=== PATIENT | male | born 1975 | race African-American/Black ===

== ENCOUNTER 2021-05-12 08:07 | Inpatient (IN) | payer MEDICAID, SELFPAY ==
[2021-05-12] VITALS (14 sets, daily range): BP systolic 111–170; BP diastolic 59–100; PULSE 82–140; RESP 16–22; TEMP 36.4; O2SAT 92–100; BMI 30.8
--- NOTE | ~2021-05-12 | CT_ITS ---
EXAMINATION: CT HEAD WITHOUT CONTRAST CLINICAL INFORMATION: Altered mental status. COMPARISON: None. TECHNIQUE: Contiguous axial imaging was performed from the skull base to vertex without intravenous administration of contrast. This CT examination was performed using dose optimization techniques as appropriate, variously including the following: *Automated exposure control *Adjustment of mA and/or kV according to patient size (this includes techniques or standardized protocols for targeted exams where dose is matched to indication/reason for exam; i.e. extremities or head) *Use of iterative reconstruction technique DLP: 899 mGy-cm. FINDINGS: There is no evidence of acute intracranial hemorrhage or territorial infarction. No abnormal mass effect or midline shift is seen. [place] to white matter differentiation is well preserved. No extra-axial fluid collections are identified. The ventricles are normal in size. There is no abnormal attenuation within the brain parenchyma. The osseous structures and soft tissues are normal. The mastoid air cells and visualized portions of the paranasal sinuses are well aerated. CT/CT head/brain wo con IMPRESSION: No acute intracranial hemorrhage or mass effect.
--- NOTE | 2021-05-12 08:16 | ED_ITS ---
HPI - Altered Mental Status General Chief Complaint: Altered Mental Status Stated Complaint: od/etoh/pd custody Time Seen by Provider: 05/12/21 08:16 Source: EMS Mode of arrival: EMS Limitations: no limitations History of Present Illness HPI narrative: patient found agitated on a hotel roof. He was agitated with po lice and ems. complaint: altered mental status Onset (ago): minute(s) Severity: severe Related Data Home Medications Medication Instructions Recorded Confirmed buspirone 15 mg tablet 1 tab PO BID PRN 05/12/21 05/12/21 fluoxetine 20 mg capsule 1 cap PO QAM 05/12/21 05/12/21 folic acid 1 mg tablet 1 tab PO DAILY 05/12/21 05/12/21 multivitamin 1 tab PO DAILY 05/12/21 05/12/21 omega-3 acid ethyl esters 1 gram 1 cap PO BID 05/12/21 05/12/21 capsule thiamine HCl (vitamin B1) 100 mg 1 tab PO DAILY 05/12/21 05/12/21 tablet Allergies Allergy/AdvReac Type Severity Reaction Status Date / Time No Known Allergies Allergy Unverified 04/23/20 17:05 [No Known Allergies*] Review of Systems Review of Systems: Yes Unobtainable due to mental status Neurologic: Denies Sensory deficit (Neuro) [facility] Social History Social History Patient Tobacco Use Status: Current everyday Tobacco user Smoked in Last 30 Days: Yes Substance Use Type: Hallucinogens Advance Directives: No Physical Exam Vital Signs: Vital Signs: Last Vital Signs Pulse 86 05/12/21 13:04 Resp 16 05/12/21 13:04 BP 113/59 L 05/12/21 13:04 Pulse Ox 96 05/12/21 13:04 Body Mass Index 30.8 Const: Other: Agitated diaphoretic, not answering questions Nutritional Appearance: average body habitus HENMT: Head: Yes normal to inspection Ears: external ears normal General nose exam: Normal external nose present Mouth: Normal oral and palatal mucosa present and oropharynx normal Throat: Yes posterior oropharynx normal Eyes: General: appearance normal, both eyes and all related structures Neck: Other: supple Neck: Yes normal visual inspection Chest: Chest palpation & inspection: normal inspection of the chest Resp: Auscultation: clear to auscultation bilaterally Cardio: Other: very tachycardic Jugular venous distension: no JVD Rhythm: regular rhythm Heart sounds: S1 normal heart sound present and S2 normal heart sound present GI: Inspection: Yes normal to inspection Palpation (GI): Soft to palpation, nontender and No hepatosplenomegaly present Auscultation: normal bowel sounds : General: Yes no CVA tenderness Back/Spine/Pelvis: Back: no CVA tenderness Skin: General skin exam: no rashes or lesions noted Neuro: Cranial nerves: Yes CN's II-XII intact bilaterally Motor exam ( neuro): 5/5 motor strength present throughout Sensory Exam: No Sensory deficit (Neuro) Extrem: General: Yes normal to inspection Psych: Other: mumbling not answering appropriately, restless Course Reevaluation(s) Reevaluation #1: patient with likely use of PCP and now with rhabdomyolisis will admit Time: 10:03 [facility] - Altered Mental Status Lab Data Result diagrams: 05/12/21 08:52 05/12/21 08:52 Labs: Lab Results 05/12/21 05/12/21 05/12/21 Range/Units 08:24 08:52 08:52 WBC 7.7 (4.8-10.8) X10*3/uL RBC 5.25 (4.60-5.80) X10*6/uL Hgb 14.5 (14.0-18.0) g/dl Hct 41.6 L (42-52) % MCV 79.2 L (80-98) fL MCH 27.6 (27.0-33.0) pg MCHC 34.9 (31.0-36.0) g/dl RDW 13.4 (11.0-16.0) % Plt Count 197 (160-400) X10*3/uL MPV 9.6 (9.4-12.4) fL Immature Gran % (Auto) 0.3 (0.0-0.4) % Neut % (Auto) 73.3 H (45-73) % Lymph % (Auto) 15.7 L (20-40) % [place] % (Auto) 10.1 (2-11) % Eos % (Auto) 0.3 (0-4) % Baso % (Auto) 0.3 (0-2) % Lymph # (Auto) 1.2 (1.2-4.9) X10*3/uL [place] # (Auto) 0.8 (0.1-1.2) X10*3/uL Eos # (Auto) 0.0 (0.0-0.4) X10*3/uL Baso # (Auto) 0.0 (0.0-0.2) X10*3/uL Abs Immat Gran (auto) 0.02 (0.00-0.03) X10*3/uL Absolute Neuts (auto) 5.6 (2.0-8.3) X10*3/uL Absolute Nucleated RBC 0.000 (0.0-0.012) X10*3/uL Nucleated RBC % (auto) 0.0 (0.0-0.2) /100WBC Sodium 143 (135-145) mmol/L Potassium 3.3 (3.3-5.1) mmol/L Chloride 108 (96-108) mmol/L Carbon Dioxide 22 (22-29) mmol/L Anion Gap 16 (12-20) BUN 22 H (9-16) mg/dL Creatinine 1.54 H (0.5-1.4) mg/dL Estim Creat Clear Calc 76.7 Estimated GFR 50 POC Glucose 140 H (60-115) mg/dL Random Glucose 127 H (60-115) mg/dL Estimat Average Glucose mg/dL Hemoglobin A1c % % Calcium 9.6 (8.4-10.2) mg/dL Magnesium 2.2 (1.6-2.6) mg/dL Total Bilirubin 0.9 (0.0-1.0) mg/dL Direct Bilirubin 0.4 (0.0-0.5) mg/dL AST 105 H (5-37) U/L ALT 58 H (0-40) U/L Alkaline Phosphatase 72 (39-117) U/L Total Creatine Kinase 3545 H (38-174) U/L Troponin I High Sens (<3.5-35.0) ng/L Total Protein 7.3 (6.5-8.0) g/dL Albumin 4.5 (3.5-5.0) g/dL Urine Color Urine Appearance Urine pH (5.0-8.0) Ur Specific [place] (1.005-1.025) Urine Protein (NEG-TRACE) MG/DL Urine Glucose (UA) (NEG) MG/DL Urine Ketones (NEG) MG/DL Urine Blood (NEG) Urine Nitrite (NEG) Ur Leukocyte Esterase (NEG) Urine RBC (0) /HPF Urine WBC (0-4) /HPF Ur Squamous Epith Cells /LPF Urine Bacteria /LPF Urine Mucus /LPF Urine Sperm Urine Opiates Screen (Not Detect) Urine Fentanyl Screen (Not Detect) Ur Barbiturates Screen (Not Detect) Ur Phencyclidine Scrn (Not Detect) Ur Amphetamines Screen (Not Detect) U Benzodiazepines Scrn (Not Detect) Urine Cocaine Screen (Not Detect) U Marijuana (THC) Screen (Not Detect) Ethyl Alcohol mg/dL COVID-19 (SHANTHI) (Negative) COVID-19 Clin Com 05/12/21 05/12/21 05/12/21 Range/Units 08:52 08:52 08:52 WBC (4.8-10.8) X10*3/uL RBC (4.60-5.80) X10*6/uL Hgb (14.0-18.0) g/dl Hct (42-52) % MCV (80-98) fL MCH (27.0-33.0) pg MCHC (31.0-36.0) g/dl RDW (11.0-16.0) % Plt Count (160-400) X10*3/uL MPV (9.4-12.4) fL Immature Gran % (Auto) (0.0-0.4) % Neut % (Auto) (45-73) % Lymph % (Auto) (20-40) % [place] % (Auto) (2-11) % Eos % (Auto) (0-4) % Baso % (Auto) (0-2) % Lymph # (Auto) (1.2-4.9) X10*3/uL [place] # (Auto) (0.1-1.2) X10*3/uL Eos # (Auto) (0.0-0.4) X10*3/uL Baso # (Auto) (0.0-0.2) X10*3/uL Abs Immat Gran (auto) (0.00-0.03) X10*3/uL Absolute Neuts (auto) (2.0-8.3) X10*3/uL Absolute Nucleated RBC (0.0-0.012) X10*3/uL Nucleated RBC % (auto) (0.0-0.2) /100WBC Sodium (135-145) mmol/L Potassium (3.3-5.1) mmol/L Chloride (96-108) mmol/L Carbon Dioxide (22-29) mmol/L Anion Gap (12-20) BUN (9-16) mg/dL Creatinine (0.5-1.4) mg/dL Estim Creat Clear Calc Estimated GFR POC Glucose (60-115) mg/dL Random Glucose (60-115) mg/dL Estimat Average Glucose 97 mg/dL Hemoglobin A1c % 5.0 % Calcium (8.4-10.2) mg/dL Magnesium (1.6-2.6) mg/dL Total Bilirubin (0.0-1.0) mg/dL Direct Bilirubin (0.0-0.5) mg/dL AST (5-37) U/L ALT (0-40) U/L Alkaline Phosphatase (39-117) U/L Total Creatine Kinase (38-174) U/L Troponin I High Sens 6.3 (<3.5-35.0) ng/L Total Protein (6.5-8.0) g/dL Albumin (3.5-5.0) g/dL Urine Color Urine Appearance Urine pH (5.0-8.0) Ur Specific [place] (1.005-1.025) Urine Protein (NEG-TRACE) MG/DL Urine Glucose (UA) (NEG) MG/DL Urine Ketones (NEG) MG/DL Urine Blood (NEG) Urine Nitrite (NEG) Ur Leukocyte Esterase (NEG) Urine RBC (0) /HPF Urine WBC (0-4) /HPF Ur Squamous Epith Cells /LPF Urine Bacteria /LPF Urine Mucus /LPF Urine Sperm Urine Opiates Screen (Not Detect) Urine Fentanyl Screen (Not Detect) Ur Barbiturates Screen (Not Detect) Ur Phencyclidine Scrn (Not Detect) Ur Amphetamines Screen (Not Detect) U Benzodiazepines Scrn (Not Detect) Urine Cocaine Screen (Not Detect) U Marijuana (THC) Screen (Not Detect) Ethyl Alcohol < 10 mg/dL COVID-19 (SHANTHI) (Negative) COVID-19 Clin Com 05/12/21 05/12/21 05/12/21 Range/Units 11:05 11:15 11:15 WBC (4.8-10.8) X10*3/uL RBC (4.60-5.80) X10*6/uL Hgb (14.0-18.0) g/dl Hct (42-52) % MCV (80-98) fL MCH (27.0-33.0) pg MCHC (31.0-36.0) g/dl RDW (11.0-16.0) % Plt Count (160-400) X10*3/uL MPV (9.4-12.4) fL Immature Gran % (Auto) (0.0-0.4) % Neut % (Auto) (45-73) % Lymph % (Auto) (20-40) % [place] % (Auto) (2-11) % Eos % (Auto) (0-4) % Baso % (Auto) (0-2) % Lymph # (Auto) (1.2-4.9) X10*3/uL [place] # (Auto) (0.1-1.2) X10*3/uL Eos # (Auto) (0.0-0.4) X10*3/uL Baso # (Auto) (0.0-0.2) X10*3/uL Abs Immat Gran (auto) (0.00-0.03) X10*3/uL Absolute Neuts (auto) (2.0-8.3) X10*3/uL Absolute Nucleated RBC (0.0-0.012) X10*3/uL Nucleated RBC % (auto) (0.0-0.2) /100WBC Sodium (135-145) mmol/L Potassium (3.3-5.1) mmol/L Chloride (96-108) mmol/L Carbon Dioxide (22-29) mmol/L Anion Gap (12-20) BUN (9-16) mg/dL Creatinine (0.5-1.4) mg/dL Estim Creat Clear Calc Estimated GFR POC Glucose (60-115) mg/dL Random Glucose (60-115) mg/dL Estimat Average Glucose mg/dL Hemoglobin A1c % % Calcium (8.4-10.2) mg/dL Magnesium (1.6-2.6) mg/dL Total Bilirubin (0.0-1.0) mg/dL Direct Bilirubin (0.0-0.5) mg/dL AST (5-37) U/L ALT (0-40) U/L Alkaline Phosphatase (39-117) U/L Total Creatine Kinase (38-174) U/L Troponin I High Sens (<3.5-35.0) ng/L Total Protein (6.5-8.0) g/dL Albumin (3.5-5.0) g/dL Urine Color YELLOW Urine Appearance CLEAR Urine pH 6.0 (5.0-8.0) Ur Specific [place] >= 1.030 H (1.005-1.025) Urine Protein 2+ H (NEG-TRACE) MG/DL Urine Glucose (UA) 250 H (NEG) MG/DL Urine Ketones 15 (NEG) MG/DL Urine Blood TRACE (NEG) Urine Nitrite NEG (NEG) Ur Leukocyte Esterase NEG (NEG) Urine RBC 1-4 (0) /HPF Urine WBC 0 (0-4) /HPF Ur Squamous Epith Cells TRACE /LPF Urine Bacteria NONE /LPF Urine Mucus 1+ /LPF Urine Sperm NOTED Urine Opiates Screen Not Detected (Not Detect) Urine Fentanyl Screen POSITIVE H (Not Detect) Ur Barbiturates Screen Not Detected (Not Detect) Ur Phencyclidine Scrn Not Detected (Not Detect) Ur Amphetamines Screen Not Detected (Not Detect) U Benzodiazepines Scrn Not Detected (Not Detect) Urine Cocaine Screen POSITIVE H (Not Detect) U Marijuana (THC) Screen Not Detected (Not Detect) Ethyl Alcohol mg/dL COVID-19 (SHANTHI) Negative (Negative) COVID-19 Clin Com See Note ECG Data ECG #1: Attestation: I personally reviewed and interpreted this ECG as follows: Interpretation: sinus [address] or twave changes Discharge Plan Discharge Clinical Impression: Altered mental status Qualifiers: Altered mental status type: unspecified Qualified Code(s): R41.82 - Altered mental status, unspecified Rhabdomyolysis Qualifiers: Rhabdomyolysis type: non-traumatic Qualified Code(s): M62.82 - Rhabdomyolysis Patient Disposition: Admitted As Inpatient
--- NOTE | 2021-05-12 08:19 | ECG_ITS ---
Test Reason : AMS Blood Pressure : / mmHG Vent. Rate : 103 BPM Atrial Rate : 103 BPM P-R Int : 156 ms QRS Dur : 094 ms QT Int : 398 ms P-R-T Axes : 042 -08 037 degrees QTc Int : 521 ms Sinus tachycardia Prolonged QT Abnormal ECG No previous ECGs available Referred By: Rupert Naqvi Electronically Signed By:TRENT HERNANDEZ
[2021-05-12] MEDS: Haloperidol Lactate 5 MG/ML VIAL 10 MG IM ×2 (08:29→16:51)
[2021-05-12] MEDS: LORazepam 2 MG/ML VIAL 4 MG IM (08:29)
[2021-05-12] MEDS: 0.9 % Sodium Chloride 1,000 ML 999 ML IVCONT ×2 (08:46)
[2021-05-12 08:56] LABS: MANUAL DIFF FLAG NO
[2021-05-12 08:58] LABS: Basophils Percent Auto 0.3 % (0-2); Eosinophils Percent Auto 0.3 % (0-4); Hematocrit 41.6 % (42-52); Hemoglobin 14.5 g/dl (14.0-18.0); Imm Gran Abs Auto 0.02 X10*3/uL (0.00-0.03); Imm Gran Pct Auto 0.3 % (0.0-0.4); Lymphocytes Absolute Auto 1.2 X10*3/uL (1.2-4.9); Lymphocytes Percent Auto 15.7 % (20-40); Mean Corpuscular HGB Conc 34.9 g/dl (31.0-36.0); Mean Corpuscular Hemoglobin 27.6 pg (27.0-33.0); Mean Corpuscular Volume 79.2 fL (80-98); Mean Platelet Volume 9.6 fL (9.4-12.4); Monocytes Absolute Auto 0.8 X10*3/uL (0.1-1.2); Monocytes Percent Auto 10.1 % (2-11); Neutrophils Absolute Auto 5.6 X10*3/uL (2.0-8.3); Neutrophils Percent Auto 73.3 % (45-73); Platelet Count 197 X10*3/uL (160-400); Red Blood Count 5.25 X10*6/uL (4.60-5.80); Red Cell Distribution Width 13.4 % (11.0-16.0); White Blood Count 7.7 X10*3/uL (4.8-10.8)
[2021-05-12 09:02] LABS: Glucose, Whole Blood 140 mg/dL (60-115)
[2021-05-12 09:14] LABS: Ethanol < 10 mg/dL
[2021-05-12 09:22] LABS: Troponin-I High Sensitivity 6.3 ng/L (<3.5-35.0)
[2021-05-12 09:28] LABS: Alanine Aminotransferase 58 U/L (0-40); Albumin Level 4.5 g/dL (3.5-5.0); Alkaline Phosphatase 72 U/L (39-117); Anion Gap 16 (12-20); Aspartate Amino Transferase 105 U/L (5-37); Bilirubin Direct 0.4 mg/dL (0.0-0.5); Bilirubin Total 0.9 mg/dL (0.0-1.0); Blood Urea Nitrogen 22 mg/dL (9-16); Calcium 9.6 mg/dL (8.4-10.2); Carbon Dioxide 22 mmol/L (22-29); Chloride 108 mmol/L (96-108); Creatinine Clr Calc Pharmacy 76.7; Estimated Glomerular Filt Rate 50; Glucose Random 127 mg/dL (60-115); Potassium 3.3 mmol/L (3.3-5.1); Sodium 143 mmol/L (135-145); Total Protein 7.3 g/dL (6.5-8.0)
[2021-05-12 10:55] LABS: Magnesium 2.2 mg/dL (1.6-2.6)
--- NOTE | 2021-05-12 10:55 | PHA.MEDREC ---
Pharmacy Consult ? Medication Reconciliation Pharmacy has completed the medication reconciliation. There are no remarkable issues. Patient had AMS therefore I completed med list by claim history. All medications were recently filled. Kassandra Cartagena, PharmD
--- NOTE | 2021-05-12 11:10 | PM.IMHP ---
History of Present Illness Date of Service: 05/12/21 Chief Complaint: Altered mental status This is a 45 yo M who was a brought to [facility] by paramedics/police after he was found on a hotel roof with altereted mental status. The patient is currently s/p sedation due to agitation and is unable to provide any history. As such, history is obtained from the ED providers and ED documentation. Per ED triage note -- Pt does not answer all questions. Pt repeatedly asks why they're going to shoot him, pt profusely sweating and tachycardic. Pt states he was on the roof because people are going to shoot him. Per ED provider -- the patient came in combative and with altered mental status. He required haldol 10mg and ativan 2mg to sedation due to agitation. His biochemical work up revealed a elevated BUN and Cr with CPK of 3545. His symptoms were attributed to suspected PCP overdose. He was given IV fluid bolus and admission was requested. Patient was seen in the ED around 1045 AM. He is currently sedated and not responding to verbal stimuli. He does move all 4 extremities randomly. He does react to painful stimuli. Patient will need to be admitted for suspected PCP induced altered mental status + rhabdo. A CT brain and COVID swab + straight cath for UA + Urine tox screen have been requested and are pending as of this note. Past medical/surgical/family and social histories are unable to be completed due to patietns mental status Review of Systems Review of Systems: unable to complete due to mental status Yes Unobtainable due to mental condition PMFSH Cognitive capacity: unable to complete due to mental status Pertinent family history: unable to complete due to mental status Social History Patient Tobacco Use Status: Current everyday Tobacco user Smoked in Last 30 Days: Yes Substance Use Type: Hallucinogens Advance Directives: No Meds Allergies Allergy/AdvReac Type Severity Reaction Status Date / Time No Known Allergies Allergy Unverified 04/23/20 17:05 [No Known Allergies*] Active Medications: Current Medications Pharmacy Consult (Consult Rx Perform Med Rec) 1 each MISCELLANE ONCE PRN PRN Reason: Consult order Home Medications Medication Instructions Recorded Confirmed Last Taken Type buspirone 15 mg tablet 1 tab PO BID PRN 05/12/21 05/12/21 Unknown History fluoxetine 20 mg capsule 1 cap PO QAM 05/12/21 05/12/21 Unknown History folic acid 1 mg tablet 1 tab PO DAILY 05/12/21 05/12/21 Unknown History multivitamin 1 tab PO DAILY 05/12/21 05/12/21 Unknown History omega-3 acid ethyl esters 1 gram 1 cap PO BID 05/12/21 05/12/21 Unknown History capsule thiamine HCl (vitamin B1) 100 mg 1 tab PO DAILY 05/12/21 05/12/21 Unknown History tablet Physical Exam Vital Signs and Narrative: Vital Signs: Last Vital Signs Pulse 88 05/12/21 09:29 Resp 20 05/12/21 09:29 BP 111/62 05/12/21 09:29 Pulse Ox 98 05/12/21 09:29 Body Mass Index 30.8 Const: Other: Constitutional -sedated, reacts to painful stimuli Eyes - pupils reactive to light Cardiovascular - S1S2, Regular rhythm, tachycardic Respiratory -no respiratory distress, on 2L NC Gastrointestinal - NT / ND; +BS; No rebound or guarding - No CVA tenderness Extremities - no calf tenderness bilaterally, no swelling Musculoskeletal - Normal inspection, Skin - Warm/Dry Neurological - Previously agitated requiring sedation, now calming resting, moves all 4 extremities spontaneously Psychological - Appropriate affect Results Labs CBC and Chem 7: 05/12/21 08:52 05/12/21 08:52 Labs: Laboratory Results - last 24 hr 05/12/21 05/12/21 05/12/21 08:24 08:52 08:52 MCV 79.2 L MCH 27.6 MCHC 34.9 RDW 13.4 Plt Count 197 MPV 9.6 Immature Gran % (Auto) 0.3 Neut % (Auto) 73.3 H Lymph % (Auto) 15.7 L [place] % (Auto) 10.1 Eos % (Auto) 0.3 Baso % (Auto) 0.3 Lymph # (Auto) 1.2 [place] # (Auto) 0.8 Eos # (Auto) 0.0 Baso # (Auto) 0.0 Abs Immat Gran (auto) 0.02 Absolute Neuts (auto) 5.6 Absolute Nucleated RBC 0.000 Nucleated RBC % (auto) 0.0 Anion Gap 16 Estim Creat Clear Calc 76.7 Estimated GFR 50 POC Glucose 140 H Random Glucose 127 H Calcium 9.6 Magnesium 2.2 Total Bilirubin 0.9 Direct Bilirubin 0.4 AST 105 H ALT 58 H Alkaline Phosphatase 72 Total Creatine Kinase 3545 H Troponin I High Sens Total Protein 7.3 Albumin 4.5 Ethyl Alcohol 05/12/21 05/12/21 08:52 08:52 MCV MCH MCHC RDW Plt Count MPV Immature Gran % (Auto) Neut % (Auto) Lymph % (Auto) [place] % (Auto) Eos % (Auto) Baso % (Auto) Lymph # (Auto) [place] # (Auto) Eos # (Auto) Baso # (Auto) Abs Immat Gran (auto) Absolute Neuts (auto) Absolute Nucleated RBC Nucleated RBC % (auto) Anion Gap Estim Creat Clear Calc Estimated GFR POC Glucose Random Glucose Calcium Magnesium Total Bilirubin Direct Bilirubin AST ALT Alkaline Phosphatase Total Creatine Kinase Troponin I High Sens 6.3 Total Protein Albumin Ethyl Alcohol < 10 Assessment and Plan (1) Altered mental status: Qualifiers: Altered mental status type: unspecified Qualified Code(s): R41.82 - Altered mental status, unspecified Status: Acute (2) Rhabdomyolysis: Qualifiers: Rhabdomyolysis type: non-traumatic Qualified Code(s): M62.82 - Rhabdomyolysis Status: Acute This is a 45 yo M who has an unknown PMH who was brought in by PD / EMS after he was found in an altered state, reportedly on a hotel roof. He was found to have acute encephalopathy and rhabdomyolysis -- both suspected secondary to PCP (or other toxin) use. He will be admitted for further care. 1. Acute toxic/metabolic encephalopathy suspected due to illicit substance use - UDS positive for cocaine+opiates sedated with haldol/ativan monitor for now may need further eval (neuro / psych / BHN) if he does not improve CT head negative 2. Rhabdomyolysis s/p 3L IVF in the ED continue with LR at 100 cc/hr monitor renal function and check CPK tomorrow AM check UA and monitor I/O 3. Prolonged qt monitor on tele check Mag avoid qt prolonging meds repeat EKG tomorrow 4. Transaminitis could be due to rhabdo will inquire about EtOH use history once more alert trend Full Code DVT pptx, Lovenox (once CT head neg for bleed) Quality Stroke Does the patient have a stroke diagnosis?: No VTE Prior VTE?: No VTE Risk Level:: Medical - moderate - high VTE Device Contraindication: Treatment Not Indicated VTE Drug Contraindication: N/A - Med Ordered
[2021-05-12 11:22] LABS: Appearance Urine CLEAR; Color Urine YELLOW; Glucose Urine UA 250 MG/DL (NEG); Leukocyte Esterase Urine NEG (NEG); Nitrite Urine NEG (NEG); Specific Gravity - Urine >= 1.030 (1.005-1.025); UACC Culture Trigger NO; Urine Blood TRACE (NEG); Urine Ketones 15 MG/DL (NEG); Urine Protein 2+ MG/DL (NEG-TRACE)
[2021-05-12 11:29] LABS: Sperm Urine NOTED; WBC Urine 0 /HPF (0-4)
[2021-05-12 11:29] LABS: COVID-19 Test Negative (Negative)
[2021-05-12 11:30] LABS: Mucus Urine 1+ /LPF; Squamous Epithelial Cell Urine TRACE /LPF
[2021-05-12 11:39] LABS: Amphetamine Screen Urine Not Detected (Not Detect); Barbiturates, Urine Not Detected (Not Detect); Benzodiazepines Screen Urine Not Detected (Not Detect); Cannabinoid Screen Urine Not Detected (Not Detect); Cocaine Screen Urine POSITIVE (Not Detect); Fentanyl, urine POSITIVE (Not Detect); Opiate Screen Urine Not Detected (Not Detect); Phencyclidine Screen Urine Not Detected (Not Detect)
[2021-05-12 12:23] LABS: Estimated Average Glucose 97 mg/dL
[2021-05-12] MEDS: Lactated Ringers 1,000 ML 100 ML IVCONT ×2 (13:07→22:12)
[2021-05-12] MEDS: Heparin Sodium,Porcine 5,000 UNIT/ML VIAL 5000 UNIT SUBCUT ×2 (13:33→22:10)
--- NOTE | 2021-05-12 17:13 | PC.NURSE ---
pt found wandering outside of room. pt was agitated and paranoid. not redirectible not following commands. Making nonsensical statements. Pt was given 10mg haldol, and escorted on stretcher back to room. pt not aware of surroundings and not making rational statements.
--- NOTE | 2021-05-12 22:00 | PC.NURSE ---
PT UA COLLECTED AND SENT . [facility] CARE AND BED CHANGED COMPLETED
--- NOTE | 2021-05-12 22:18 | PC.NURSE ---
pt medicated per Mar and repositioned. pt is sleeping at this time with no distress.
--- NOTE | 2021-05-12 23:04 | MHC.CM.PN ---
CM chose not to wake patient for CM interview, as pt was extremely agitated earlier and multiple security guards were needed to restrain him. CM will need to interview and speak with him in the am when he is calmer. CM to follow for d/c needs.
--- NOTE | 2021-05-13 00:19 | PC.NURSE ---
pt is sleeping with 1:1 at the bed side
[2021-05-13 02:07] VITALS: BP 130/73; RESP 17; O2SAT 97
--- NOTE | 2021-05-13 04:29 | PC.NURSE ---
pt sleeping .pt is clam with sister at the bed side.
[2021-05-13] MEDS: Heparin Sodium,Porcine 5,000 UNIT/ML VIAL 5000 UNIT SUBCUT (06:12)
--- NOTE | 2021-05-13 06:14 | PC.NURSE ---
pt able to respond to question when asked, pt is sleepy. pt clean and dry. Pt has 1:1 at this time.
--- NOTE | 2021-05-13 06:20 | PC.NURSE ---
first attempt to give report to receiving unit.Will call back .
--- NOTE | 2021-05-13 06:37 | PC.NURSE ---
Was told pt belong is D-con or my not having belongings. Will confirm and send belonging to unit once located.
--- NOTE | 2021-05-13 06:52 | PC.NURSE ---
Spoke to [facility] who had pt prior to me and will be addressing belongings.
[2021-05-13 07:38] VITALS: BP 113/71; PULSE 78; RESP 16; TEMP 36.3; O2SAT 97
--- NOTE | 2021-05-13 08:00 | ECG_ITS ---
Test Reason : BRADYCARDIA Blood Pressure : / mmHG Vent. Rate : 069 BPM Atrial Rate : 069 BPM P-R Int : 146 ms QRS Dur : 096 ms QT Int : 442 ms P-R-T Axes : 050 005 060 degrees QTc Int : 473 ms Normal sinus rhythm Normal ECG When compared with ECG of 12-MAY-2021 09:56, Vent. rate has decreased BY 34 BPM QT has shortened Referred By: Jaswant Pavon Electronically Signed By:TRENT HERNANDEZ
[2021-05-13 08:13] LABS: Hematocrit 40.9 % (42-52); Hemoglobin 13.7 g/dl (14.0-18.0); Mean Corpuscular HGB Conc 33.5 g/dl (31.0-36.0); Mean Corpuscular Hemoglobin 27.4 pg (27.0-33.0); Mean Corpuscular Volume 81.8 fL (80-98); Mean Platelet Volume 9.8 fL (9.4-12.4); Platelet Count 176 X10*3/uL (160-400); Red Cell Distribution Width 13.7 % (11.0-16.0); White Blood Count 7.3 X10*3/uL (4.8-10.8)
[2021-05-13 08:29] LABS: Anion Gap 12 (12-20); Blood Urea Nitrogen 13 mg/dL (9-16); Calcium 8.6 mg/dL (8.4-10.2); Carbon Dioxide 26 mmol/L (22-29); Chloride 109 mmol/L (96-108); Creatinine Clr Calc Pharmacy 129.9; Estimated Glomerular Filt Rate > 60; Glucose Random 119 mg/dL (60-115); Potassium 3.6 mmol/L (3.3-5.1); Sodium 143 mmol/L (135-145)
[2021-05-13 08:30] LABS: Alanine Aminotransferase 48 U/L (0-40); Albumin Level 3.6 g/dL (3.5-5.0); Alkaline Phosphatase 65 U/L (39-117); Aspartate Amino Transferase 84 U/L (5-37); Bilirubin Direct 0.6 mg/dL (0.0-0.5); Bilirubin Total 1.4 mg/dL (0.0-1.0)
[2021-05-13] MEDS: Lactated Ringers 1,000 ML 100 ML IVCONT ×2 (08:30→20:03)
--- NOTE | 2021-05-13 10:18 | MHC.CM.PN ---
Male 45 DX AMS OD He lives alone and is independent all functional mobility. DP home with resources provided by [facility].
--- NOTE | 2021-05-13 10:32 | P.CDIC_ITS ---
CDI Concurrent Query Documentation Clarification: PHYSICIAN'S DOCUMENTATION REQUEST Date of Query: 05/13/21 1033 Patient Name: Neda Wynn Admit Date: 05/12/21 Dear Doctor, A review of the medical record indicates additional documentation may be needed. Please review below and update the documentation accordingly. Clinical Indicators: Risk Factors/Clinical Indicators/Treatments LABS: Bun 22 H 13 Cr: 1.54 H 0.91 Gfr: 50 >60 Elevated BUN and CR, IV fluids given . Monitor renal function Based on the above, could you clarify in the Progress Notes the appropriate diagnosis, if significant, that supports the above abnormalities and additional evaluation, monitoring, and/or treatment rendered: Acute kidney failure, Resolved, Treating or not treating * Other (please specify) * Unable to determine Use of terms such as suspected, likely, concern for, or probable (associated with a specific diagnosis that is being evaluated, monitored, or treated as if it exists) are acceptable and can be coded in the inpatient setting, when documented at the time of discharge. Thank you, Loren William [facility], CDIS Extension: [phone] Please use your independent medical judgment in providing your response. THIS QUERY IS PART OF THE PERMANENT MEDICAL RECORD Provider Response: Other Other Diagnosis: ELOY present on admission (SCr improved from 1.51 to 0.91)
[2021-05-13 11:15] VITALS: BP 115/60; PULSE 59; RESP 16; O2SAT 97
--- NOTE | 2021-05-13 13:52 | MHC.CARE ---
CARE Team met with Pt who was somewhat guarded. Pt reports prior to coming to the ED he was afraid someone was out to get him resulting in him going on the roof of motel. Pt denied intent jump though reiterated someone was trying to get him . Note Pts toxicology screen was postive for cocaine and fentayl. It is unclear if substance use correlated to paranoia due to reporting now that he felt safe and nobody was out to get him. Pt reports a history of one prior IPLOC in 1995. Pt reports a diagnosis of Bipolar Disorder. Pt denies current SI/HI/AH/VH. Pt appeared somewhat drowsy. Pt denied sleep and appetite disturbances. Plan for psychiatric provider to meet with Pt to provide recommendation.
[2021-05-13 15:27] VITALS: BP 151/79; PULSE 79; RESP 20; TEMP 36.9; O2SAT 98
--- NOTE | 2021-05-13 17:05 | P.DS_ITS ---
DS: Providers Provider Date of Service: 05/14/21 Date of admission: 05/12/21 12:41 Date of discharge: 05/13/21 Primary care physician: Unknown Physician Consults: 05/13/21 10:40 Consult to Care Team Routine Comment: Reason for consultation: paranoid thoughts, eval for inpatient level of psych care Attending physician on discharge: Jaswant Pavon Discharging clinician: Kaitlin Mixon DS: Diagnosis Discharge Diagnosis (1) Altered mental status: Status: Acute (2) Rhabdomyolysis: Status: Acute (3) ELOY (acute kidney injury): Status: Acute DS: Summary Hospital Course Hospital Course: From H&P on day of admission This is a 45 yo M who was a brought to [facility] ED by paramedics/police after he was found on a hotel roof with altereted mental status. The patient is currently s/p sedation due to agitation and is unable to provide any history. As such, history is obtained from the ED providers and ED documentation. Per ED triage note -- Pt does not answer all questions. Pt repeatedly asks why they're going to shoot him, pt profusely sweating and tachycardic. Pt states he was on the roof because people are going to shoot him. Per ED provider -- the patient came in combative and with altered mental status. He required haldol 10mg and ativan 2mg to sedation due to agitation. His biochemical work up revealed a elevated BUN and Cr with CPK of 3545. His symptoms were attributed to suspected PCP overdose. He was given IV fluid bolus and admission was requested. Patient was seen in the ED around 1045 AM. He is currently sedated and not responding to verbal stimuli. He does move all 4 extremities randomly. He does react to painful stimuli. Patient will need to be admitted for suspected PCP induced altered mental status + rhabdo. A CT brain and COVID swab + straight cath for UA + Urine tox screen have been requested and are pending as of this note. Past medical/surgical/family and social histories are unable to be completed due to patietns mental status Patient was admitted to the hospital due to altered mental status, ELOY, rhabdomyolysis. He was started on IV fluid. Today his renal function has improved from 1.54-0.91. His CPK decreased from 3545 to 2604. Liver transaminases were slightly elevated but are trending down. QTC was initially prolonged at 521 but has improved to 473. His mental status has improved and was likely secondary to drug use. He was evaluated by the care team was recommended admission to the inpatient psychiatric floor for further management of depression. Time Spent with Patient Time attestation: Total time spent providing and/or coordinating discharge services: Discharge coordination time: Greater than 30 minutes Quality: Stroke Does the patient have a stroke diagnosis?: No Physical Exam Vital Signs: Vital Signs: Last Vital Signs Temp 98.4 F 05/13/21 15:27 Pulse 79 05/13/21 15:27 Resp 20 05/13/21 15:27 BP 151/79 H 05/13/21 15:27 Pulse Ox 98 05/13/21 15:27 Body Mass Index 30.8 Const: Nutritional Appearance: well nourished Orientation/consciousness: patient oriented x3 HENMT: Head: Yes normocephalic and Yes atraumatic Eyes: Sclerae: sclerae normal Resp: Effort & Inspection: normal respiratory effort and no respiratory dis tress Cardio: Rate: regular rate Rhythm: regular rhythm GI: Palpation (GI): Soft to palpation and nontender Neuro: General: patient oriented x3 Cranial nerves: Yes CN's II-XII intact bilaterally and Yes Bilaterally intact EOM present DS: Data Data Completed and Pending Labs on day of discharge: Laboratory Results - last 24 hr 05/13/21 05/13/21 05/13/21 07:55 07:55 07:55 WBC 7.3 RBC 5.00 Hgb 13.7 L Hct 40.9 L MCV 81.8 MCH 27.4 MCHC 33.5 RDW 13.7 Plt Count 176 MPV 9.8 Absolute Nucleated RBC 0.000 Nucleated RBC % (auto) 0.0 Sodium 143 Potassium 3.6 Chloride 109 H Carbon Dioxide 26 Anion Gap 12 BUN 13 Creatinine 0.91 Estim Creat Clear Calc 129.9 Estimated GFR > 60 Random Glucose 119 H Calcium 8.6 D Total Bilirubin 1.4 H Direct Bilirubin 0.6 H AST 84 H ALT 48 H Alkaline Phosphatase 65 Total Creatine Kinase 2604 H Total Protein 6.0 L Albumin 3.6 Discharge Plan Discharge Disposition: Xfer Psychiatric Hosp Referrals: Physician,Unknown J [Primary Care Provider] - 1 Week Discharge Medications: Continued multivitamin Tablet 1 tab PO DAILY RF: 0 thiamine HCl (vitamin B1) 100 mg tablet 1 tab PO DAILY RF: 0 folic acid 1 mg tablet 1 tab PO DAILY RF: 0 fluoxetine 20 mg capsule 1 cap PO QAM RF: 0 buspirone 15 mg tablet 1 tab PO BID PRN (Reason: anxiety) RF: 0 omega-3 acid ethyl esters 1 gram capsule 1 cap PO BID RF: 0 Discharge Orders: Discharge Order (Routine); Ordered 05/14/21 Ordered By: Kaitlin Mixon Forms: Patient Portal Discharge page Care Plan Goals: stay healthy and out of the hospital Health Concerns: ELOY Rhabdomyolysis QTC prolongation Depression Substance use Elevated LFTs Plan of Treatment: ELOY. Resolved with IV fluid Rhabdomyolysis. Improving QTC improved LFTs trending down. no abdominal pain Assessment: discharge to inpatient psych for further management
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
[2021-05-13] MEDS: 0.9 % Sodium Chloride Flush 3 ML SYRINGE IVFLUSH (18:27)
[2021-05-13 19:17] VITALS: BP 149/83; PULSE 66; RESP 20; TEMP 36.7; O2SAT 98
--- NOTE | 2021-05-13 21:06 | MHC.CARE ---
Pt was evaluated by Yanira Goel, and CARE team. Plan is for a voluntary psychiatric admission. pt will likely be admitted tomorrow.
[2021-05-14] VITALS: BP 157/75; PULSE 58; RESP 18; TEMP 37.1; O2SAT 96
[2021-05-14 04:00] VITALS: BP 118/74; PULSE 58; RESP 18; TEMP 36.9; O2SAT 95
[2021-05-14] MEDS: Lactated Ringers 1,000 ML 100 ML IVCONT (05:23)
[2021-05-14 07:00] VITALS: BP 134/85; PULSE 48; RESP 18; TEMP 36.1; O2SAT 98
[2021-05-14 09:04] LABS: Alanine Aminotransferase 46 U/L (0-40); Albumin Level 3.5 g/dL (3.5-5.0); Alkaline Phosphatase 66 U/L (39-117); Anion Gap 11 (12-20); Aspartate Amino Transferase 61 U/L (5-37); Bilirubin Direct 0.4 mg/dL (0.0-0.5); Bilirubin Total 0.9 mg/dL (0.0-1.0); Blood Urea Nitrogen 10 mg/dL (9-16); Calcium 8.7 mg/dL (8.4-10.2); Carbon Dioxide 26 mmol/L (22-29); Chloride 108 mmol/L (96-108); Creatinine Clr Calc Pharmacy 145.9; Estimated Glomerular Filt Rate > 60; Glucose Random 100 mg/dL (60-115); Potassium 3.8 mmol/L (3.3-5.1); Sodium 141 mmol/L (135-145); Total Protein 5.9 g/dL (6.5-8.0)
--- NOTE | 2021-05-14 09:17 | P.PNIM_ITS ---
Subjective Subjective Date of Service: 05/13/21 Interval History: LATE ENTRY FOR 05/13/21 Pt seen and examined in the AM. He reports feeling fine physically. Denies SI/HI or AH. Reports he smoked crack. Denies fentanyl use. Denies PCP use. Review of Systems no chest pain, no sob Physical Exam Vital Signs: Vital Signs: Last Vital Signs Temp 97 F 05/14/21 07:00 Pulse 48 L 05/14/21 07:00 Resp 18 05/14/21 07:00 BP 134/85 05/14/21 07:00 Pulse Ox 98 05/14/21 07:00 Body Mass Index 30.8 Const: Other: General - no acute distress, appears comfortable Cardiovascular - regular rate and rhythm, S1-S2 Lungs - normal respiratory effort, clear to auscultation bilaterally, no wheezing Abdomen - soft, nontender, no rebound or guarding Extremities - no edema bilaterally Neuro - awake and alert, no focal deficits Objective Data Active Medications Acetaminophen (Acetaminophen 325 Mg Tablet) 650 mg PO Q6H PRN PRN Reason: Pain, Mild (Pain Scale 1-3) Heparin Sodium (Porcine) (Heparin Sodium,Porcine 5,000 Unit/Ml Vial) 5,000 unit SUBCUT Q8H [facility] Last Admin: 05/14/21 05:24 Dose: Not Given Documented by: GALLITO Non-Admin Reason: Patient Refused Lactated Ringer's (Lr) 1,000 mls @ 100 mls/hr IVCONT .Q10H [facility] Last Admin: 05/14/21 05:23 Dose: 100 mls/hr Documented by: GALLITO Pharmacy Consult (Consult Rx Perform Med Rec) 1 each MISCELLANE ONCE PRN PRN Reason: Consult order Sodium Chloride (0.9 % Sodium Chloride Flush 3 Ml Syringe) 3 ml IVFLUSH QSHIFT [facility] Last Admin: 05/14/21 00:08 Dose: Not Given Documented by: GALLITO Non-Admin Reason: IV Running Labs CBC & Chem 7: 05/13/21 07:55 05/14/21 08:17 Labs: Laboratory Results - last 24 hr 05/14/21 08:17 Anion Gap 11 L Estim Creat Clear Calc 145.9 Estimated GFR > 60 Random Glucose 100 Calcium 8.7 Total Bilirubin 0.9 Direct Bilirubin 0.4 AST 61 H ALT 46 H Alkaline Phosphatase 66 Total Creatine Kinase 1489 H D Total Protein 5.9 L Albumin 3.5 Assessment and Plan (1) ELOY (acute kidney injury): Status: Acute Assessment and Plan: This is a 45 yo M who has an unknown PMH who was brought in by PD / EMS after he was found in an altered state, reportedly on a hotel roof. He was found to have acute encephalopathy and rhabdomyolysis -- both suspected secondary to PCP (or other toxin) use. He will be admitted for further care. 1. Acute toxic encephalopathy suspected due to illicit substance use 2. ELOY (present on admission) due to Rhabdomyolysis SCr 1.54 upon admission, now down to 0.91 continue IVF 3. Prolonged qt normalized 4. Transaminitis could be due to rhabdo improved 5. Hallucinations / paranoid psych evaluation Full Code DVT pptx, heparin Quality Stroke Does the patient have a stroke diagnosis?: No VTE Prior VTE?: No VTE Risk Level:: Medical - moderate - high VTE Device Contraindication: Treatment Not Indicated VTE Drug Contraindication: N/A - Med Ordered
--- NOTE | 2021-05-14 09:34 | HO.PM.IMPN ---
Subjective Subjective Date of Service: 05/14/21 Interval History: seen and examined this AM no complaints no si/hi/ah no physical complaints Review of Systems General - no fevers or chills Cardiovascular - no chest pain Respiratory - no shortness of breath or cough Abdominal- no abdominal pain, nausea, vomiting, diarrhea Physical Exam Vital Signs: Vital Signs: Last Vital Signs Temp 97 F 05/14/21 07:00 Pulse 48 L 05/14/21 07:00 Resp 18 05/14/21 07:00 BP 134/85 05/14/21 07:00 Pulse Ox 98 05/14/21 07:00 Body Mass Index 30.8 Const: Other: General - no acute distress, appears comfortable Cardiovascular - regular rate and rhythm, S1-S2 Lungs - normal respiratory effort, clear to auscultation bilaterally, no wheezing Abdomen - soft, nontender, no rebound or guarding Extremities - no edema bilaterally Neuro - awake and alert, no focal deficits Objective Data Active Medications Acetaminophen (Acetaminophen 325 Mg Tablet) 650 mg PO Q6H PRN PRN Reason: Pain, Mild (Pain Scale 1-3) Heparin Sodium (Porcine) (Heparin Sodium,Porcine 5,000 Unit/Ml Vial) 5,000 unit SUBCUT Q8H [facility] Last Admin: 05/14/21 05:24 Dose: Not Given Documented by: GALLITO Non-Admin Reason: Patient Refused Pharmacy Consult (Consult Rx Perform Med Rec) 1 each MISCELLANE ONCE PRN PRN Reason: Consult order Sodium Chloride (0.9 % Sodium Chloride Flush 3 Ml Syringe) 3 ml IVFLUSH QSHIFT [facility] Last Admin: 05/14/21 09:26 Dose: Not Given Documented by: DIANNE Non-Admin Reason: IV Running Labs CBC & Chem 7: 05/13/21 07:55 05/14/21 08:17 Labs: Laboratory Results - last 24 hr 05/14/21 08:17 Anion Gap 11 L Estim Creat Clear Calc 145.9 Estimated GFR > 60 Random Glucose 100 Calcium 8.7 Total Bilirubin 0.9 Direct Bilirubin 0.4 AST 61 H ALT 46 H Alkaline Phosphatase 66 Total Creatine Kinase 1489 H D Total Protein 5.9 L Albumin 3.5 Assessment and Plan (1) ELOY (acute kidney injury): Status: Acute (2) Rhabdomyolysis: Status: Acute Assessment and Plan: This is a 45 yo M who has an unknown PMH who was brought in by PD / EMS after he was found in an altered state, reportedly on a hotel roof. He was found to have acute encephalopathy and rhabdomyolysis -- both suspected secondary to PCP (or other toxin) use. He will be admitted for further care. 1. Acute toxic encephalopathy suspected due to illicit substance use 2. ELOY (present on admission) due to Rhabdomyolysis SCr 1.54 upon admission, now down to 0.8 stop ivf, encourage orals 3. Prolonged qt normalized 4. Transaminitis improving 5. Hallucinations / paranoid psych evaluation appreciated -- needs inpatient psych, bed search in progress Full Code DVT pptx, heparin Quality Stroke Does the patient have a stroke diagnosis?: No VTE Prior VTE?: No VTE Risk Level:: Medical - moderate - high VTE Device Contraindication: Treatment Not Indicated VTE Drug Contraindication: N/A - Med Ordered
[2021-05-14 11:14] VITALS: BP 140/82; PULSE 63; RESP 20; TEMP 35.5; O2SAT 97
--- NOTE | 2021-05-14 14:23 | MHC.CM.PN ---
Patient discharged to 5
== END 2021-05-14 13:08 | DRG 351 ==
LOC: HO.ED 10:09 → HO.EDOVER 13:15 → HO.IMC 05-13 06:12
PROVIDERS: Admitting Provider Family Medicine; Emergency Provider Emergency Medicine; Visit Provider Physician Assistant Medical
DX: M62.82 Rhabdomyolysis (principal); G92.8 Other toxic encephalopathy; N17.9 Acute kidney failure, unspecified; R94.31 Abnormal electrocardiogram [ECG] [EKG]; F10.10 Alcohol abuse, uncomplicated; F33.1 Major depressive disorder, recurrent, moderate; F41.1 Generalized anxiety disorder; F14.20 Cocaine dependence, uncomplicated; F17.210 Nicotine dependence, cigarettes, uncomplicated; Z20.822 Contact with and (suspected) exposure to COVID-19; Z71.6 Tobacco abuse counseling; Z79.899 Other long term (current) drug therapy
CPT/HCPCS: 36415; 70450; 80048; 80076; 80307; 81001; 82077; 82550; 82947; 83036; 83735; 84484; 85025; 85027; 87635; 93005; 99285; J2060

== ENCOUNTER 2021-05-14 13:54 | Inpatient (IN) | payer OTHER, SELFPAY ==
[2021-05-14] MEDS: FLUoxetine HCl 20 MG CAPSULE PO (14:41)
[2021-05-14] MEDS: Nicotine Polacrilex 2 MG GUM 4 MG BUCCAL (14:42)
[2021-05-14 18:00] VITALS: BP 130/65; PULSE 80; TEMP 36.6
--- NOTE | 2021-05-14 20:11 | MHC.RECOVSUP ---
? Reason for consult: Recovery Support o?? Current location [facility]? o?? Identified substance use concern Crack/Alcohol ? Intervention: o?? Community resources provided o?? Harm reduction discussion ? Plan: o?? Follow up tomorrow o?? Patient to follow up with [facility] after discharge ? Additional information: Spoke with Pt. He states that he relapse three days ago. Reason family .Explained to Pt. that this population health coach will bring some information tomorrow and follow up with him.?
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
--- NOTE | 2021-05-14 23:46 | PC.ADMIT ---
Pt is a 45 year old male who presented to on a cv status. Pt has a long history of depression, anxiety with co-occurring alcohol and crack abuse. Pt was found on a a hotel roof with altered mental status. Pt is covid -. urine tox + for cocaine. Pt denied SI/HI/VH/AH. Provider notified and called for orders. Pt on 15 min safety checks
[2021-05-15 06:08] VITALS: BP 120/58; PULSE 60; RESP 18; TEMP 35.9; O2SAT 96
[2021-05-15] MEDS: Thiamine HCL 100 MG TABLET PO (08:29)
[2021-05-15] MEDS: FLUoxetine HCl 20 MG CAPSULE PO (08:29)
[2021-05-15] MEDS: Folic Acid 1 MG TABLET PO (08:29)
[2021-05-15] MEDS: Multivitamin TABLET 1 TAB PO (08:29)
[2021-05-15] MEDS: busPIRone HCl 5 MG TABLET 15 MG PO (08:31)
--- NOTE | 2021-05-15 10:03 | HO.PSYCHPN ---
Subjective Subjective Date of Service: 05/15/21 Reason For Visit: depression Interim History: Patient reports that he is feeling better. He says he is feeling ?good... Back to my normal self... having normal desires... He denies any SI, HI or AVH. He talked about how he was sober for 6 months, going to the gym, being involved in caodaism and family but as the stress mounted he relapsed. Patient shared that his mother 8 months ago, his sister about 3 weeks ago, and other stressful events that were triggering. That said, patient feels optimistic about staying sober. He says he would like to go to an IOP program during the day. 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 He also says that he was on Prozac 60 mg for years, as reported in the H and P, and that would like to be titrated back up to this dose to which loan underwriter agrees can be started. On this dose patient said he did have any depression and was stable. Ski Production Supervisor further reviewed his history and patient does not have any history of bipolar, manic type behaviors. Mental Status Exam Mental Status Exam Narrative: Pt is alert and oriented; behavior is cooperative, friendly and calm; patient is not in distress; dressed in casual attire with adequate hygiene; mood is described as good and affect congruent; eye contact appropriate; Speech is normal rate, volume and prosody and not pressured; no psychomotor agitation/retardation present; thought process is organized, linear, logical and goal directed. Thought content is on current treatment and aftercare; otherwise TC relevant to pertinent topics and without any delusional content, paranoid ideations or grandiosity; denies any SI/HI. There is no evidence of perceptual disturbance. ?Patients insight and judgment appear intact. ? Diagnostics Vital Signs (24Hr): Vital Signs - 24 hr 05/14/21 18:00 05/15/21 06:08 Temperature 98 F 96.7 F L Pulse Rate 80 60 Respiratory Rate 18 Blood Pressure 130/65 120/58 L Pulse Oximetry 96 Medications Medications Current Medications Acetaminophen (Acetaminophen 325 Mg Tablet) 650 mg PO Q6H PRN PRN Reason: Pain, Mild (Pain Scale 1-3) Al Hydroxide/Mg Hydroxide (Magnesium Hydrox/Alum Hydrox 30 Ml Oral.Susp) 30 ml PO Q6H PRN PRN Reason: Heartburn/Nausea Buspirone HCl (Buspirone Hcl 5 Mg Tablet) 15 mg PO BID PRN PRN Reason: anxiety Last Admin: 05/15/21 08:31 Dose: 15 mg Documented by: Fluoxetine HCl (Fluoxetine Hcl 20 Mg Capsule) 20 mg PO DAILY [facility] Last Admin: 05/15/21 08:29 Dose: 20 mg Documented by: Folic Acid (Folic Acid 1 Mg Tablet) 1 mg PO DAILY [facility] Last Admin: 05/15/21 08:29 Dose: 1 mg Documented by: Hydroxyzine HCl (Hydroxyzine Hcl 25 Mg Tablet) 25 mg PO Q6H PRN PRN Reason: Anxiety Magnesium Hydroxide (Milk Of Magnesia 30 Ml Oral.Susp) 30 ml PO DAILY PRN PRN Reason: Constipation Multivitamins/Vitamin C (Multivitamin Tablet) 1 tab PO DAILY [facility] Last Admin: 05/15/21 08:29 Dose: 1 tab Documented by: Nicotine Polacrilex (Nicotine Polacrilex 2 Mg Gum) 4 mg BUCCAL Q2H PRN PRN Reason: Nicotine Cravings Last Admin: 05/14/21 14:42 Dose: 4 mg Documented by: Thiamine HCl (Thiamine Hcl 100 Mg Tablet) 100 mg PO DAILY [facility] Last Admin: 05/15/21 08:29 Dose: 100 mg Documented by: Trazodone HCl (Trazodone Hcl 50 Mg Tablet) 50 mg PO BEDTIME PRN PRN Reason: Insomnia Allergies Allergies Allergy/AdvReac Type Severity Reaction Status Date / Time No Known Allergies Allergy Unverified 04/23/20 17:05 [No Known Allergies*] Assessment & Plan Assessment & Plan (1) Alcohol use disorder, mild, abuse: Status: Acute Code(s): F10.10 - Alcohol abuse, uncomplicated (2) Cocaine use disorder, severe, dependence: Status: Acute Code(s): F14.20 - Cocaine dependence, uncomplicated (3) DEEP (generalized anxiety disorder): Status: Acute Code(s): F41.1 - Generalized anxiety disorder (4) MDD (major depressive disorder), recurrent episode, moderate: Status: Acute Code(s): F33.1 - Major depressive disorder, recurrent, moderate Assessment and Plan: 45 y.o. Who carries a dx of crack cocaine abuse, alcohol use disorder, DEEP, and MDD recurrent. R/o PTSD. Hx of longstanding sx of depression, anxiety with co-occurring alcohol and crack cocaine abuse. He is currently presenting with sx of depression including risk taking behaviors, isolation, withdrawal bx, irritability, and sad mood. Hx of non-adherence with OP psych meds, recently re-started on prozac 20 mg in March and has had difficulty obtaining OP prescriber due to long wait list. Would benefit from meeting with Recovery team to discuss [facility] treatment and referrals. Although he is not endorsing suicidal ideation he says he does not feel safe leaving the hospital and is seeking help for abstaining from substances and treatment for depression. Hospital course: Neda presents with sx of depression and has been on/ off prozac for many years, he reports good effect and that he has tolerated higher doses in the past. He does endorse some sx of hypomania, however sx may more likely be a function of trauma hx and RYAN rather than bipolar disorder. Will monitor response to medications and continue to gather collateral info. -loan underwriter further assessed history and patient denies any history of bipolar or manic type behaviors; he also reports doing well on 60 mg of Prozac, further making bipolar disorder much less likely. Patient reports that his mood can fluctuate throughout the day, waking up appy but then getting triggered by a negative thought and being sad or upset for less than an hour; these minor episodes are brief, resolved on their own and is his normal day-to-day baseline. Ski Production Supervisor explained that this mood fluctuations throughout the day is common for people struggling with anxiety and with a history of trauma. Plan: -INCREASED Prozac to 30 mg; will likely titrate back to previous home dose of 60 mg given that patient reports he was without depression on this dose for years. Buspar currently 15 mg BID PRN, consider scheduling as pt reports he is adherent and takes it twice a day with good effect for anxiety. Referral to Recovery Team was placed, counselor spoke with Neda this evening, consult appreciated Monitor response to medications. Monitor for safety in the milieu. Discharge on stabilization. Patient seen. Chart reviewed. Discussed with team. Obtain collateral contact info?as needed Greater than 50% of the session was spent on counseling and/or coordination of care Reason for contiued inpatient stay Substantial Risk for: rapid decompensation
[2021-05-15] MEDS: Nicotine Polacrilex 2 MG GUM 4 MG BUCCAL (15:25)
[2021-05-16 07:06] VITALS: BP 119/69; PULSE 72; RESP 18; TEMP 36.8; O2SAT 100
[2021-05-16] MEDS: busPIRone HCl 5 MG TABLET 15 MG PO (08:12)
[2021-05-16] MEDS: Folic Acid 1 MG TABLET PO (08:12)
[2021-05-16] MEDS: Thiamine HCL 100 MG TABLET PO (08:12)
[2021-05-16] MEDS: Multivitamin TABLET 1 TAB PO (08:12)
[2021-05-16] MEDS: FLUoxetine HCl 10 MG CAPSULE 30 MG PO (08:12)
[2021-05-16] MEDS: Nicotine Polacrilex 2 MG GUM 4 MG BUCCAL ×2 (10:29→20:32)
--- NOTE | 2021-05-16 10:45 | HO.PSYCHPN ---
Subjective Subjective Date of Service: 05/16/21 Reason For Visit: depression Interim History: pt reports he's good and depression remains resolved; no SI/HI or AVH. Pt reports he's sleeping well. He's been talking with girlfriend who agrees with tx plan of him going to an IOP post discharge. Pt asks for Prozac to continue to be titrated back to 60mg (dose where he felt best) to which ghost writer agrees. He denies any med side-effects. Pt is hoping that on Monday when SW returns he can find out about IOP and then discharge soon. Mental Status Exam Mental Status Exam Narrative: Pt is alert and oriented; behavior is cooperative, friendly and calm; patient is not in distress; dressed in casual attire with adequate hygiene; mood is described as good and affect congruent; eye contact appropriate; Speech is normal rate, volume and prosody and not pressured; no psychomotor agitation/retardation present; thought process is organized, linear, logical and goal directed. Thought content is on current treatment and aftercare; otherwise TC relevant to pertinent topics and without any delusional content, paranoid ideations or grandiosity; denies any SI/HI. judgment/insight intact Diagnostics Vital Signs (24Hr): Vital Signs - 24 hr 05/16/21 07:06 Temperature 98.3 F Pulse Rate 72 Respiratory Rate 18 Blood Pressure 119/69 Pulse Oximetry 100 Labs Results: 05/17/21 07:59 Medications Medications Current Medications Acetaminophen (Acetaminophen 325 Mg Tablet) 650 mg PO Q6H PRN PRN Reason: Pain, Mild (Pain Scale 1-3) Al Hydroxide/Mg Hydroxide (Magnesium Hydrox/Alum Hydrox 30 Ml Oral.Susp) 30 ml PO Q6H PRN PRN Reason: Heartburn/Nausea Buspirone HCl (Buspirone Hcl 5 Mg Tablet) 15 mg PO BID PRN PRN Reason: anxiety Last Admin: 05/16/21 08:12 Dose: 15 mg Documented by: Fluoxetine HCl (Fluoxetine Hcl 10 Mg Capsule) 30 mg PO DAILY [facility] Last Admin: 05/16/21 08:12 Dose: 30 mg Documented by: Folic Acid (Folic Acid 1 Mg Tablet) 1 mg PO DAILY [facility] Last Admin: 05/16/21 08:12 Dose: 1 mg Documented by: Hydroxyzine HCl (Hydroxyzine Hcl 25 Mg Tablet) 25 mg PO Q6H PRN PRN Reason: Anxiety Magnesium Hydroxide (Milk Of Magnesia 30 Ml Oral.Susp) 30 ml PO DAILY PRN PRN Reason: Constipation Multivitamins/Vitamin C (Multivitamin Tablet) 1 tab PO DAILY [facility] Last Admin: 05/16/21 08:12 Dose: 1 tab Documented by: Nicotine Polacrilex (Nicotine Polacrilex 2 Mg Gum) 4 mg BUCCAL Q2H PRN PRN Reason: Nicotine Cravings Last Admin: 05/16/21 10:29 Dose: 4 mg Documented by: Thiamine HCl (Thiamine Hcl 100 Mg Tablet) 100 mg PO DAILY [facility] Last Admin: 05/16/21 08:12 Dose: 100 mg Documented by: Trazodone HCl (Trazodone Hcl 50 Mg Tablet) 50 mg PO BEDTIME PRN PRN Reason: Insomnia Allergies Allergies Allergy/AdvReac Type Severity Reaction Status Date / Time No Known Allergies Allergy Unverified 04/23/20 17:05 [No Known Allergies*] Assessment & Plan Assessment & Plan (1) Alcohol use disorder, mild, abuse: Status: Acute Code(s): F10.10 - Alcohol abuse, uncomplicated (2) Cocaine use disorder, severe, dependence: Status: Acute Code(s): F14.20 - Cocaine dependence, uncomplicated (3) DEEP (generalized anxiety disorder): Status: Acute Code(s): F41.1 - Generalized anxiety disorder (4) MDD (major depressive disorder), recurrent episode, moderate: Status: Acute Code(s): F33.1 - Major depressive disorder, recurrent, moderate Assessment and Plan: 45 y.o. Who carries a dx of crack cocaine abuse, alcohol use disorder, DEEP, and MDD recurrent. R/o PTSD. Hx of longstanding sx of depression, anxiety with co-occurring alcohol and crack cocaine abuse. He is currently presenting with sx of depression including risk taking behaviors, isolation, withdrawal bx, irritability, and sad mood. Hx of non-adherence with OP psych meds, recently re-started on prozac 20 mg in March and has had difficulty obtaining OP prescriber due to long wait list. Would benefit from meeting with Recovery team to discuss RYAN treatment and referrals. Although he is not endorsing suicidal ideation he says he does not feel safe leaving the hospital and is seeking help for abstaining from substances and treatment for depression. Hospital course: Neda presents with sx of depression and has been on/ off prozac for many years, he reports good effect and that he has tolerated higher doses in the past. He does endorse some sx of hypomania, however sx may more likely be a function of trauma hx and RYAN rather than bipolar disorder. Will monitor response to medications and continue to gather collateral info. -ghost writer further assessed history and patient denies any history of bipolar or manic type behaviors; he also reports doing well on 60 mg of Prozac, further making bipolar disorder much less likely. Patient reports that his mood can fluctuate throughout the day, waking up appy but then getting triggered by a negative thought and being sad or upset for less than an hour; these minor episodes are brief, resolved on their own and is his normal day-to-day baseline. Paint Prep Technician explained that this mood fluctuations throughout the day is common for people struggling with anxiety and with a history of trauma. -stable, good mood, eating sleeping well; appropriate with staff, peers; no SI/HI; approaching discharge Plan: -INCREASED Prozac to 40 mg; will likely titrate back to previous home dose of 60 mg given that patient reports he was without depression on this dose for years. Buspar currently 15 mg BID PRN, consider scheduling as pt reports he is adherent and takes it twice a day with good effect for anxiety. Referral to Recovery Team was placed, counselor spoke with Neda this evening, consult appreciated Monitor response to medications. Monitor for safety in the milieu. Discharge on stabilization. Patient seen. Chart reviewed. Discussed with team. Obtain collateral contact info?as needed Greater than 50% of the session was spent on counseling and/or coordination of care Reason for contiued inpatient stay Substantial Risk for: other
[2021-05-16 21:07] VITALS: BP 133/69; PULSE 70; TEMP 36.1; O2SAT 96
[2021-05-17 06:00] VITALS: BP 141/63; PULSE 55; RESP 20; TEMP 36.7; O2SAT 98
[2021-05-17] MEDS: Thiamine HCL 100 MG TABLET PO (08:01)
[2021-05-17] MEDS: FLUoxetine HCl 20 MG CAPSULE 40 MG PO (08:01)
[2021-05-17] MEDS: Folic Acid 1 MG TABLET PO (08:01)
[2021-05-17] MEDS: Multivitamin TABLET 1 TAB PO (08:01)
[2021-05-17 08:30] LABS: Alanine Aminotransferase 47 U/L (0-40); Albumin Level 4.1 g/dL (3.5-5.0); Alkaline Phosphatase 65 U/L (39-117); Aspartate Amino Transferase 31 U/L (5-37); Bilirubin Direct < 0.2 mg/dL (0.0-0.5); Bilirubin Total 0.5 mg/dL (0.0-1.0); Blood Urea Nitrogen 18 mg/dL (9-16); Estimated Glomerular Filt Rate > 60; Total Protein 6.9 g/dL (6.5-8.0)
--- NOTE | 2021-05-17 15:46 | P.DS_ITS ---
DS: Providers Provider Date of Service: 05/18/21 Date of admission: 05/14/21 13:54 Date of discharge: 05/18/21 Primary care physician: Unknown Physician Attending physician on admission: Gaudencio Camacho Attending physician on discharge: Gaudencio Camacho DS: Diagnosis Discharge Diagnosis (1) MDD (major depressive disorder), recurrent episode, moderate: Status: Chronic (2) DEEP (generalized anxiety disorder): Status: Chronic (3) Alcohol use disorder, mild, abuse: Status: Chronic (4) Cocaine use disorder, severe, dependence: Status: Chronic DS: Medications Discharge Medications Home Medications: Home Medications Medication Instructions Recorded Confirmed folic acid 1 mg tablet 1 tab PO DAILY 05/12/21 05/15/21 multivitamin 1 tab PO DAILY 05/12/21 05/15/21 omega-3 acid ethyl esters 1 gram 1 cap PO BID 05/12/21 05/15/21 capsule thiamine HCl (vitamin B1) 100 mg 1 tab PO DAILY 05/12/21 05/15/21 tablet Previous Rx's Medication Instructions Recorded buspirone 15 mg tablet 15 mg PO BID PRN 30 Days #60 tab 05/17/21 fluoxetine 20 mg capsule 60 mg PO DAILY 30 Days #90 cap 05/17/21 nicotine (polacrilex) 2 mg gum 4 mg BUCCAL Q2H PRN 30 Days #100 ea 05/17/21 Mental Status Exam Mental Status Exam Narrative: Pt is alert and oriented; behavior is cooperative, friendly and calm; patient is not in distress; dressed in casual attire with adequate hygiene; mood is described as good and affect congruent; eye contact appropriate; Speech is normal rate, volume and prosody and not pressured; no psychomotor agitation/retardation present; thought process is organized, linear, logical and goal directed. Thought content is on current treatment and aftercare; otherwise TC relevant to pertinent topics and without any delusional content, paranoid ideations or grandiosity; denies any SI/HI. judgment/insight intact Data Data Completed and Pending Completed studies during hospitalization [Text1]: 05/17/21 07:59 BUN 18 H D Creatinine 1.03 Estim Creat Clear Calc TNP Estimated GFR > 60 Total Bilirubin 0.5 Direct Bilirubin < 0.2 AST 31 D ALT 47 H Alkaline Phosphatase 65 Total Creatine Kinase 360 H D Total Protein 6.9 Albumin 4.1 DS: Summary Hospital Course Hospital Course: 45 y.o. Who carries a dx of crack cocaine abuse, alcohol use disorder, DEEP, and MDD recurrent. R/o PTSD. Hx of longstanding sx of depression, anxiety with co- occurring alcohol and crack cocaine abuse. He is currently presenting with sx of depression including risk taking behaviors, isolation, withdrawal bx, irritability, and sad mood. Hx of non-adherence with OP psych meds, recently re- started on prozac 20 mg in March and has had difficulty obtaining OP prescriber due to long wait list... he is not endorsing suicidal ideation he says he does not feel safe leaving the hospital and is seeking help for abstaining from substances and treatment for depression. Hospital course: On admission patient reported that his mood was better and denied any SI, HI or AVH. He was grateful to be on Prozac and asked for to be titrated further. Patient said that his main goal was to get into an IOP. Otherwise he was hoping to discharge soon so he could get back to work, owing rent and having kids to take care of. His Prozac was titrated back to 60 mg which he says he has been on in the past and was effective a keeping depression at [place]. During his admission, auto service writer further assessed history and patient denies any history of bipolar or manic type behaviors; his report ofdoing well on 60 mg of Prozac also makes bipolar disorder much less likely. Patient reports that his mood can fluctuate throughout the day, waking up happy but then getting triggered by a ne gative thought and being sad or upset which resolves within an hour or less; these minor episodes are brief, resolved on their own and is his normal day-to-day baseline.? Scrap Shear Operator explained that this mood fluctuations throughout the day are common for people struggling with anxiety and with a history of trauma. On the unit patient was in good behavioral and impulse control throughout his admission, continued to deny any SI or HI and appropriate with peers and staff. Patient was eating and sleeping well, future oriented and focused on starting outpt substance abuse treatment. He is not in imminent risk of harm to self or others and his request for discharge honored. Status at Discharge Functional status at discharge: independent ambulation Overall status at discharge: patient is back to baseline Time Spent with Patient Time attestation: Total time spent providing and/or coordinating discharge services: Time spent: Less than 30 minutes Discharge Plan Discharge Patient Disposition: Home, Self-Care Discharge Diagnosis: MDD, recurrent, severe in full remission [facility] Kendell Hawkins [Other] - 05/19/21 12:30 pm Jyothi Gan [Other] - 05/25/21 2:00 pm (Therapist Appointment Patient needs to show for initial appointment or psychiatry appointments will be cancelled. Please bring photo ID and Insurance card to appointment.) Mandy Ny [Other] - 06/14/21 10:40 am (Psychiatry medication evaluation appointment tele-health appointment) Mandy Ny [Other] - 07/14/21 10:00 am ( Psychiatry Medication Management appointment Tele-health Appointment) Caitlin Damon NP [Nurse Practitioner] - 06/02/21 11:00 am Discharge Medications: New nicotine (polacrilex) 2 mg Gum 4 mg buccal Q2H PRN (Reason: Nicotine Cravings) 30 Days Qty: 100 RF: 0 fluoxetine 20 mg Capsule 60 mg PO DAILY 30 Days Qty: 90 RF: 0 Continued multivitamin Tablet 1 tab PO DAILY RF: 0 thiamine HCl (vitamin B1) 100 mg tablet 1 tab PO DAILY RF: 0 folic acid 1 mg tablet 1 tab PO DAILY RF: 0 omega-3 acid ethyl esters 1 gram capsule 1 cap PO BID RF: 0 Changed buspirone 15 mg tablet 15 mg PO BID PRN (Reason: anxiety) 30 Days Qty: 60 RF: 0 Discontinued fluoxetine 20 mg capsule 1 cap PO QAM RF: 0 Discharge Orders: Discharge Order (Routine); Ordered 05/18/21 Ordered By: Gaudencio Camacho Diet: regular diet Activity on Discharge: As tolerated Stand Alone Forms: Patient Portal Discharge page, Community Support Care Plan Goals: Maintain mood and safe behaviors Take medications as prescribed Continue to pursue sobriety Practice coping skills Continue with outpatient providers and reach out to them as needed Health Concerns: Mood stability and behaviors Sobriety Plan of Treatment: Follow up with your psychiatric provider regarding above concerns Take medications as prescribed Assessment: Risk assessment at time of discharge:? Patient was interviewed prior to discharge and found to be fully oriented and without any SI or HI. Patient has insight and demonstrates good judgment in terms of wanting to pursue treatment. Patient is not in imminent risk of harm to self or others and has a safety plan that includes presenting to the closest ER or calling 911 if feeling unsafe.? Patient has been observed closely by nursing and unit staff throughout admission; patient has not engaged in any behaviors that suggest dangerousness to self or others and has demonstrated appropriate behaviors and impulse control Discharge Date/Time: 05/18/21 11:00
[2021-05-17 18:00] VITALS: BP 140/69; PULSE 75; TEMP 36.4; O2SAT 95
[2021-05-17] MEDS: Nicotine Polacrilex 2 MG GUM 4 MG BUCCAL (18:15)
--- NOTE | 2021-05-17 21:23 | HO.PSYCHPN ---
Subjective Subjective Date of Service: 05/17/21 Reason For Visit: depression Interim History: good mood; no SI or HI; sleeping and eating well; looking forward to meeting with SW to help get into iop and then discharge home; no complaints; would like prozac titrated to previous home does of 60mg to which conventional mortgage underwriter agrees Mental Status Exam Mental Status Exam Narrative: Pt is alert and oriented; behavior is cooperative, friendly and calm; patient is not in distress; dressed in casual attire with adequate hygiene; mood is described as good and affect congruent; eye contact appropriate; Speech is normal rate, volume and prosody and not pressured; no psychomotor agitation/retardation present; thought process is organized, linear, logical and goal directed. Thought content is on current treatment and aftercare; otherwise TC relevant to pertinent topics and without any delusional content, paranoid ideations or grandiosity; denies any SI/HI. judgment/insight intact Diagnostics Vital Signs (24Hr): Vital Signs - 24 hr 05/17/21 06:00 05/17/21 18:00 Temperature 98.0 F 97.5 F Pulse Rate 55 75 Respiratory Rate 20 Blood Pressure 141/63 H 140/69 H Pulse Oximetry 98 95 Labs Results: 05/17/21 07:59 Labs: Laboratory Results - last 48 hr 05/17/21 07:59 BUN 18 H D Creatinine 1.03 Estim Creat Clear Calc TNP Estimated GFR > 60 Total Bilirubin 0.5 Direct Bilirubin < 0.2 AST 31 D ALT 47 H Alkaline Phosphatase 65 Total Creatine Kinase 360 H D Total Protein 6.9 Albumin 4.1 Medications Medications Current Medications Acetaminophen (Acetaminophen 325 Mg Tablet) 650 mg PO Q6H PRN PRN Reason: Pain, Mild (Pain Scale 1-3) Al Hydroxide/Mg Hydroxide (Magnesium Hydrox/Alum Hydrox 30 Ml Oral.Susp) 30 ml PO Q6H PRN PRN Reason: Heartburn/Nausea Buspirone HCl (Buspirone Hcl 5 Mg Tablet) 15 mg PO BID PRN PRN Reason: anxiety Last Admin: 05/16/21 08:12 Dose: 15 mg Documented by: Fluoxetine HCl (Fluoxetine Hcl 20 Mg Capsule) 40 mg PO DAILY [facility] Last Admin: 05/17/21 08:01 Dose: 40 mg Documented by: Folic Acid (Folic Acid 1 Mg Tablet) 1 mg PO DAILY [facility] Last Admin: 05/17/21 08:01 Dose: 1 mg Documented by: Hydroxyzine HCl (Hydroxyzine Hcl 25 Mg Tablet) 25 mg PO Q6H PRN PRN Reason: Anxiety Magnesium Hydroxide (Milk Of Magnesia 30 Ml Oral.Susp) 30 ml PO DAILY PRN PRN Reason: Constipation Multivitamins/Vitamin C (Multivitamin Tablet) 1 tab PO DAILY [facility] Last Admin: 05/17/21 08:01 Dose: 1 tab Documented by: Nicotine Polacrilex (Nicotine Polacrilex 2 Mg Gum) 4 mg BUCCAL Q2H PRN PRN Reason: Nicotine Cravings Last Admin: 05/17/21 18:15 Dose: 4 mg Documented by: Thiamine HCl (Thiamine Hcl 100 Mg Tablet) 100 mg PO DAILY [facility] Last Admin: 05/17/21 08:01 Dose: 100 mg Documented by: Trazodone HCl (Trazodone Hcl 50 Mg Tablet) 50 mg PO BEDTIME PRN PRN Reason: Insomnia Allergies Allergies Allergy/AdvReac Type Severity Reaction Status Date / Time No Known Allergies Allergy Unverified 04/23/20 17:05 [No Known Allergies*] Assessment & Plan Assessment & Plan (1) Alcohol use disorder, mild, abuse: Status: Acute Code(s): F10.10 - Alcohol abuse, uncomplicated (2) Cocaine use disorder, severe, dependence: Status: Acute Code(s): F14.20 - Cocaine dependence, uncomplicated (3) DEEP (generalized anxiety disorder): Status: Acute Code(s): F41.1 - Generalized anxiety disorder (4) MDD (major depressive disorder), recurrent episode, moderate: Status: Acute Code(s): F33.1 - Major depressive disorder, recurrent, moderate Assessment and Plan: 45 y.o. Who carries a dx of crack cocaine abuse, alcohol use disorder, DEEP, and MDD recurrent. R/o PTSD. Hx of longstanding sx of depression, anxiety with co-occurring alcohol and crack cocaine abuse. He is currently presenting with sx of depression including risk taking behaviors, isolation, withdrawal bx, irritability, and sad mood. Hx of non-adherence with OP psych meds, recently re-started on prozac 20 mg in March and has had difficulty obtaining OP prescriber due to long wait list. Would benefit from meeting with Recovery team to discuss RYAN treatment and referrals. Although he is not endorsing suicidal ideation he says he does not feel safe leaving the hospital and is seeking help for abstaining from substances and treatment for depression. Hospital course: Neda presents with sx of depression and has been on/ off prozac for many years, he reports good effect and that he has tolerated higher doses in the past. He does endorse some sx of hypomania, however sx may more likely be a function of trauma hx and RYAN rather than bipolar disorder. Will monitor response to medications and continue to gather collateral info. -conventional mortgage underwriter further assessed history and patient denies any history of bipolar or manic type behaviors; he also reports doing well on 60 mg of Prozac, further making bipolar disorder much less likely. Patient reports that his mood can fluctuate throughout the day, waking up appy but then getting triggered by a negative thought and being sad or upset for less than an hour; these minor episodes are brief, resolved on their own and is his normal day-to-day baseline. Rides Attendant explained that this mood fluctuations throughout the day is common for people struggling with anxiety and with a history of trauma. -stable, good mood, eating sleeping well; appropriate with staff, peers; no SI/HI; approaching discharge Plan: -INCREASED Prozac to 60 mg; which is prior home dose with pt reports did well on Buspar currently 15 mg BID PRN, consider scheduling as pt reports he is adherent and takes it twice a day with good effect for anxiety. Referral to Recovery Team was placed, counselor spoke with Neda this evening, consult appreciated Monitor response to medications. Monitor for safety in the milieu. Discharge on stabilization. Patient seen. Chart reviewed. Discussed with team. Obtain collateral contact info?as needed Greater than 50% of the session was spent on counseling and/or coordination of care Reason for contiued inpatient stay Substantial Risk for: stable for discharge
[2021-05-18] MEDS: FLUoxetine HCl 20 MG CAPSULE 40 MG PO (08:45)
[2021-05-18] MEDS: Multivitamin TABLET 1 TAB PO (08:45)
[2021-05-18] MEDS: Folic Acid 1 MG TABLET PO (08:45)
[2021-05-18] MEDS: Thiamine HCL 100 MG TABLET PO (08:45)
[2021-05-18] MEDS: FLUoxetine HCl 20 MG CAPSULE PO (10:09)
[2021-05-18 10:12] VITALS: BP 137/71; PULSE 75; RESP 18; TEMP 36.2; O2SAT 98
== END 2021-05-18 11:00 | disposition home or self-care (01) | DRG 751 ==
PROVIDERS: Admitting Provider Physician Assistant Medical; Visit Provider Psychiatry & Neurology Psychiatry
DX: F33.1 Major depressive disorder, recurrent, moderate (principal); F14.20 Cocaine dependence, uncomplicated; F10.10 Alcohol abuse, uncomplicated; E66.3 Overweight; F17.210 Nicotine dependence, cigarettes, uncomplicated; Z71.6 Tobacco abuse counseling; Z79.899 Other long term (current) drug therapy
CPT/HCPCS: 36415; 80076; 82550; 82565; 84520

== ENCOUNTER 2021-05-22 21:47 | Emergency (ER) | payer MEDICAID, SELFPAY ==
[2021-05-22] MEDS: LORazepam 1 MG TABLET 2 MG PO (22:04)
[2021-05-22 22:07] VITALS: BP 126/72; PULSE 130; RESP 16; TEMP 37.3; O2SAT 98; BMI 31.1
--- NOTE | 2021-05-22 22:25 | ED_ITS ---
HPI - Psych General Chief Complaint: ETOH/Substance Use Stated Complaint: CRISIS Time Seen by Provider: 05/22/21 22:00 Source: patient and EMS Mode of arrival: EMS Limitations: no limitations History of Present Illness HPI Narrative: Patient's history of PTSD history of cocaine and heroin and PCP use had a gun worsens in his neighborhood stressed out started drinking and use cocaine feels very anxious with palpitation asking for some medication to come down denies any suicidal ideation or homicidal feeling cooperative speaking in full sentences Related Data Home Medications Medication Instructions Recorded Confirmed folic acid 1 mg tablet 1 tab PO DAILY 05/12/21 05/15/21 multivitamin 1 tab PO DAILY 05/12/21 05/15/21 omega-3 acid ethyl esters 1 gram 1 cap PO BID 05/12/21 05/15/21 capsule thiamine HCl (vitamin B1) 100 mg 1 tab PO DAILY 05/12/21 05/15/21 tablet Previous Rx's Medication Instructions Recorded buspirone 15 mg tablet 15 mg PO BID PRN 30 Days #60 tab 05/17/21 fluoxetine 20 mg capsule 60 mg PO DAILY 30 Days #90 cap 05/17/21 nicotine (polacrilex) 2 mg gum 4 mg BUCCAL Q2H PRN 30 Days #100 ea 05/17/21 Allergies Allergy/AdvReac Type Severity Reaction Status Date / Time No Known Allergies Allergy Unverified 04/23/20 17:05 [No Known Allergies*] Review of Systems Review of Systems: Yes all other systems are reviewed and are negative [facility] Social History Social History Household Members: None Housing: Apartment Do you presently have visiting nurse or other home services: No Unable to assess alcohol history related to: Refusing to respond Patient Tobacco Use Status: Current everyday Tobacco user Tobacco use type: Cigarette Cigarette Packs Per Day: 1.5 Cigarettes Per Day: 30.0 Years Smoked: 10+ Second Hand Smoke Exposure: Yes Substance Use Type: Crack/Cocaine Advance Directives: No service: No Current occupational status: unemployed Sexual orientation: Straight/Heterosexual Physical Exam Vital Signs: Vital Signs: Last Vital Signs Temp 99.2 F 05/22/21 22:07 Pulse 88 05/23/21 00:55 Resp 20 05/23/21 00:55 BP 126/72 05/22/21 22:07 Pulse Ox 98 05/23/21 00:55 Body Mass Index 31.1 Appearance: Alert. Oriented X3. No acute distress. Eyes: PERRLA, ENT: Pharynx normal. Oral Mucosa moist Neck: Normal inspection. Neck supple. CVS: RRR, tachycardia Pulses normal. Respiratory: No respiratory distress. Equal air entry bilateral, no wheezing/rales/rhonchi Abdomen: Soft and nontender. Bowel sounds are present, no mass palpable, Skin: Skin warm and dry. Normal skin color. Normal skin turgor. Extremities: No lower extremity edema. No calf tenderness Neuro: Oriented X 3 Discharge Plan Discharge Clinical Impression: Acute post-traumatic stress disorder, Active substance abuse Patient Disposition: Home, Self-Care Instructions: Post Traumatic Stress Disorder (ED), Polysubstance Abuse (ED) Additional Instructions: Rest at home Stop using cocaine/heroin Prescriptions: No Action multivitamin Tablet 1 tab PO DAILY RF: 0 thiamine HCl (vitamin B1) 100 mg tablet 1 tab PO DAILY RF: 0 folic acid 1 mg tablet 1 tab PO DAILY RF: 0 omega-3 acid ethyl esters 1 gram capsule 1 cap PO BID RF: 0 nicotine (polacrilex) 2 mg Gum 4 mg buccal Q2H PRN (Reason: Nicotine Cravings) 30 Days Qty: 100 RF: 0 fluoxetine 20 mg Capsule 60 mg PO DAILY 30 Days Qty: 90 RF: 0 buspirone 15 mg tablet 15 mg PO BID PRN (Reason: anxiety) 30 Days Qty: 60 RF: 0
[2021-05-22 22:37] VITALS: PULSE 101; RESP 18; O2SAT 99
--- NOTE | 2021-05-22 22:59 | PC.NURSE ---
SPOKE W/PTS SISTER AMY WHO DELIVERED RECONSIGNMENT CLERK FOR PTS ANKLE MONITOR AN DPLACED IN THE ROOM W/PTS BELONGINGS
[2021-05-23] VITALS: PULSE 94; O2SAT 97
[2021-05-23 00:55] VITALS: PULSE 88; RESP 20; O2SAT 98
--- NOTE | 2021-05-23 00:55 | PC.NURSE ---
PER MD PLAN OF CARE FOR D/C IN THE MORNING ONCE PT IS AWAKE
--- NOTE | 2021-05-23 03:28 | PC.NURSE ---
PT AMBULATED TO THE RESTROOM W/STEADY GAIT. SPEAKS IN FULL CLEAR SENTENCES, PT STATES DOES NOT HAVE DOBER RIDE HOME, IS BEING CALM COOPERATIVE AND APPROPRIATE AT THIS TIME. PT IS AWARE OF PLAN OF CARE FOR D/C HOME AT [facility]X [id number]
[2021-05-23 04:00] VITALS: PULSE 88; RESP 16; O2SAT 97
== END 2021-05-23 04:59 | disposition home or self-care (01) ==
PROVIDERS: Emergency Provider Internal Medicine
DX: F43.11 Post-traumatic stress disorder, acute (principal); F14.10 Cocaine abuse, uncomplicated; F11.10 Opioid abuse, uncomplicated
CPT/HCPCS: 99283